=== PATIENT | female | born 1980 | race Caucasian/White ===

== ENCOUNTER 2016-12-12 15:13 | Emergency (ER) | payer MEDICAID ==
[2016-12-12 15:41] VITALS: BP 118/88
[2016-12-12] MEDS ORDERED: Acetaminophen/HYDROcodone 325-5 MG Tab PO ONE (16:08)
--- NOTE | 2016-12-12 16:12 | CR ---
Right foot: 4 views of the right foot were obtained. Comparison: No previous foot study. Joint spaces are preserved. Plantar spur is noted. No acute fracture or other bony abnormality is seen. Impression: 1. Plantar spur. 2. No acute abnormality is identified on right foot exam. Diagnostic code #2
--- NOTE | 2016-12-12 16:19 | EDM.PDOC ---
ED HPI GENERAL MEDICAL PROBLEM - General Chief Complaint: Lower Extremity Injury/Pain Stated Complaint: RT FOOT INJURY Time Seen by Provider: 12/12/16 16:00 Source of Information: Reports: Patient History Limitations: Reports: No Limitations - History of Present Illness INITIAL COMMENTS - FREE TEXT/NARRATIVE: 28-year-old female presents for evaluation treatment of injury to the right foot. Patient reports injury occurred last night. She reports she dropped a cinder block on her dorsal right foot. Estimates the cinder block to weight between 15-20 pounds. She states she has been unable to bear weight on the foot since the incident. Reports bruising to the right dorsal toe. Denies any numbness or tingling. She states that she has chronic numbness and tingling in the left leg from back problems. She is not able to bear weight on her left leg. She normally uses a cane or walker. She has been using a wheelchair to get around since the injury. Location: Reports: Lower Extremity, Right Right Feet Pain Score (Numeric/FACES): 8 - Related Data Allergies Allergy/AdvReac Type Severity Reaction Status Date / Time No Known Allergies Allergy Verified 12/12/16 15:20 Home Meds: Home Meds Topiramate [Topamax] 25 mg PO BEDTIME 12/06/15 [History] Lubiprostone [Amitiza] 24 mcg PO BID 03/28/16 [History] Omeprazole Magnesium [Prilosec Otc] 20 mg PO DAILY 03/28/16 [History] busPIRone [Buspar] 15 mg PO TID 03/28/16 [History] hydrOXYzine HCl [Atarax] 75 mg PO BEDTIME 03/28/16 [History] Acetaminophen/HYDROcodone [[place] 325-5 MG] 1 tab PO Q6H PRN #12 tablet 12/12/16 [Rx] Metaxalone 800 mg PO TID 12/12/16 [History] Vortioxetine Hydrobromide [Trintellix] 10 mg PO DAILY 12/12/16 [History] Past Medical History - Past Health History Medical/Surgical History: Denies Medical/Surgical History Cardiovascular History: Reports: Other (See Below) Other Cardiovascular History: palpitations Gastrointestinal History: Reports: GERD Genitourinary History: Reports: Renal Calculus Other OB/BYN History: tubal Musculoskeletal History: Reports: Back Pain, Chronic Other Musculoskeletal History: muscle spasms Neurological History: Reports: Headaches, Chronic, Other (See Below) Other Neuro History: fibromyalgia Psychiatric History: Reports: Anxiety, Depression Endocrine/Metabolic History: Reports: Obesity/BMI 30+ Oncologic (Cancer) History: Reports: None - Past Surgical History GI Surgical History: Reports: Cholecystectomy Female Surgical History: Reports: Tubal Ligation Social & Family History - Tobacco Use Smoking Status *Q: Current Every Day Smoker Years of Tobacco use: 25 Packs/Tins Daily: 0.3 Second Hand Smoke Exposure: Yes - Alcohol Use Days Per Week of Alcohol Use: 0 (rarely) Number of Drinks Per Day: 0 Total Drinks Per Week: 0 - Recreational Drug Use Recreational Drug Use: No Drug Use in Last 12 Months: No Recreational Drug Type: Reports: Marijuana/Hashish Recreational Drug Use Frequency: Not Used In Over 6 Months Review of Systems - Review of Systems Review Of Systems: See Below Musculoskeletal: Reports: Foot Pain (right) Skin: Reports: Bruising (right foot dorsal 3rd toe). Denies: Wound Neurological: Reports: Difficulty Walking. Denies: Numbness, Tingling ED EXAM, GENERAL - Physical Exam Exam: See Below Exam Limited By: No Limitations General Appearance: Alert, WD/WN, Mild Distress (tearful), Obese Respiratory/Chest: No Respiratory Distress Cardiovascular: Normal Peripheral Pulses, Regular Rate, Rhythm Peripheral Pulses: 2+: Posterior Tibial (L), Posterior Tibial (R), Dorsalis Pedis (L), Dorsalis Pedis (R) Extremities: Normal Capillary Refill, Limited Range of Motion (unwilling to move toes due to apin), Other (tenderness to palpation of the right dorsal metatarsals; minimal swelling to the right foot). No: Increased Warmth Neurological: Alert, Oriented, Normal Cognition Psychiatric: Tearful Skin Exam: Warm, Dry, Ecchymosis (approximately 1.5 x 1 cm ecchymosis to the right dorsal 3rd toe). No: Increased Warmth Course - Vital Signs Last Recorded V/S: Last Vital Signs Temp 36.7 C 12/12/16 15:17 Pulse 84 12/12/16 15:17 Resp 16 12/12/16 15:17 BP 118/88 12/12/16 15:17 Pulse Ox 100 12/12/16 15:17 - Orders/Labs/Meds Meds: Medications Discontinued Medications Generic Name Dose Route Start Last Admin Trade Name Nikita PRN Reason Stop Dose Admin Hydrocodone Bitart/Acetaminophen 1 tab 12/12/16 16:08 12/12/16 16:30 [place] 325-5 Mg PO 12/12/16 16:09 1 tab ONETIME ONE Administration - Radiology Interpretation Free Text/Narrative:: xray of the right foot impression per dr. Damico: 1. plantar spur. 2. No acute abnormality is identified on right foot exam. - Re-Assessments/Exams Free Text/Narrative Re-Assessment/Exam: 12/12/16 17:31 I reviewed the radiology read with the patient. She has a wheelchair at home she can use if needed. No fractures. I offered her a CT if she is concerned about a break that may not have shown up on xray. She declines a CT at this time. She will treat conservatively and follow up with PCP if not better. Rx given for pain medication. Discharge instructions as documented. Departure - Departure Time of Disposition: 17:35 Disposition: Home, Self-Care 01 Condition: Fair Clinical Impression: Traumatic ecchymosis of right foot - Discharge Information Prescriptions: Acetaminophen/HYDROcodone [[place] 325-5 MG] 1 tab PO Q6H PRN #12 tablet PRN Reason: Pain Referrals: PCP,None [Primary Care Provider] - Forms: ED Department Discharge Additional Instructions: you were given medication in the ER that can affect your ability to drive and operate machinery. No driving or operating machinery within 12 hours of taking prescription narcotic pain medication. OTC ibuprofen as needed for pain. [place] 1-2 tabs PO every 4-6 hours prn severe pain. Do not drive or operate machinery within 12 hours of taking norco. [place] can be habit forming, I recommend you take as few of these as needed to control your pain. Ice the foot. Elevate the foot. Recommend being off the foot for the next 3 days. Expect your symptoms to last 1 week. The first 3 days will be the worst. If your symptoms persist beyond one week follow-up with your primary care provider. Please return to the ER if your symptoms change or worsen.
== END 2016-12-12 17:44 | disposition home or self-care (01) ==
LOC: JD.ED 15:13
DX: S90.31XA Contusion of right foot, initial encounter (principal); K21.9 Gastro-esophageal reflux disease without esophagitis; F41.9 Anxiety disorder, unspecified; F32.9 Major depressive disorder, single episode, unspecified; F17.210 Nicotine dependence, cigarettes, uncomplicated; E66.9 Obesity, unspecified; Z68.37 Body mass index [BMI] 37.0-37.9, adult; Z90.49 Acquired absence of other specified parts of digestive tract; Z98.51 Tubal ligation status; Z79.899 Other long term (current) drug therapy; W20.8XXA Other cause of strike by thrown, projected or falling object, initial encounter
CPT/HCPCS: 73630; 99284; A9270; 99283

== ENCOUNTER 2017-03-16 14:30 | Emergency (ER) | payer MEDICAID ==
[2017-03-16 14:50] VITALS: BP 131/94
--- NOTE | 2017-03-16 15:16 | EDM.PDOC ---
ED HPI GENERAL MEDICAL PROBLEM - General Chief Complaint: Back Pain or Injury Stated Complaint: BACK PAIN,LEFT ARM AND LEG NUMB Time Seen by Provider: 03/16/17 14:54 Source of Information: Reports: Patient, Old Records, Provider (contacted patient's PCP) History Limitations: Reports: No Limitations - History of Present Illness INITIAL COMMENTS - FREE TEXT/NARRATIVE: 36-year-old female presents for evaluation and treatment of injuries sustained after fall. Patient reports fall occurred around 1300 this afternoon as she was helping her paint. She states that she backed up and did not see a tree stump. She states that she fell backwards landing onto her butt. She then fell back onto her upper back due to the pain. She denies any head trauma. Reports numbness to the left leg and states she is now developing numbness and tingling into the left arm. She denies any loss of consciousness initially but states that she has a history of fibromyalgia and sometimes loses consciousness when she is in severe pain. Reports on the way over to the ER she did lose consciousness for maybe a few seconds. No nausea or vomiting. No saddle anesthesia. No urinary or stool incontinence. Pain to the low back extending superiorly into her upper back and neck. Reports numbness to the left leg and left arm. Of note nursing staff appreciated t hat she was able to get out her truck and into a wheelchair without problem. She was able to remove her pants without problem and uses her left leg appropriately for each of these. Location: Reports: Neck, Back Neck Pain Score (Numeric/FACES): 10 Back Pain Score (Numeric/FACES): 10 - Related Data Allergies Allergy/AdvReac Type Severity Reaction Status Date / Time ketorolac [From Toradol] AdvReac Anxiety Verified 03/16/17 14:54 tramadol AdvReac Anxiety Verified 03/16/17 14:54 Home Meds: Home Meds Topiramate [Topamax] 25 mg PO BEDTIME 12/06/15 [History] Lubiprostone [Amitiza] 24 mcg PO BID 03/28/16 [History] Omeprazole Magnesium [Prilosec Otc] 20 mg PO DAILY 03/28/16 [History] busPIRone [Buspar] 15 mg PO TID 03/28/16 [History] hydrOXYzine HCl [Atarax] 75 mg PO BEDTIME 03/28/16 [History] Metaxalone 800 mg PO TID 12/12/16 [History] Vortioxetine Hydrobromide [Trintellix] 10 mg PO DAILY 12/12/16 [History] Past Medical History - Past Health History Medical/Surgical History: Denies Medical/Surgical History Cardiovascular History: Reports: Other (See Below) Other Cardiovascular History: palpitations Gastrointestinal History: Reports: GERD Genitourinary History: Reports: Renal Calculus Other OB/BYN History: tubal Musculoskeletal History: Reports: Back Pain, Chronic, Fibromyalgia Other Musculoskeletal History: muscle spasms Neurological History: Reports: Headaches, Chronic Other Neuro History: fibromyalgia Psychiatric History: Reports: Anxiety, Depression Endocrine/Metabolic History: Reports: Obesity/BMI 30+ Oncologic (Cancer) History: Reports: None - Past Surgical History GI Surgical History: Reports: Cholecystectomy Female Surgical History: Reports: Tubal Ligation Neurological Surgical History: Reports: Lumbar Spine Social & Family History - Tobacco Use Smoking Status *Q: Current Every Day Smoker Years of Tobacco use: 25 Packs/Tins Daily: 0.5 Second Hand Smoke Exposure: Yes - Caffeine Use Caffeine Use: Reports: Coffee, Energy Drinks - Alcohol Use Days Per Week of Alcohol Use: 0 (rarely) Number of Drinks Per Day: 0 Total Drinks Per Week: 0 - Recreational Drug Use Recreational Drug Use: No Drug Use in Last 12 Months: No Recreational Drug Type: Reports: Marijuana/Hashish Recreational Drug Use Frequency: Not Used In Over 6 Months ED ROS GENERAL - Review of Systems Review Of Systems: See Below GI/Abdominal: Denies: Stool Incontinence : Denies: Incontinence Musculoskeletal: Reports: Neck Pain, Arm Pain, Back Pain Skin: Denies: Bruising, Wound Neurological: Reports: Numbness, Syncope, Tingling, Other (no saddle anesthesia) ED EXAM,LOWER BACK PAIN/INJURY - Physical Exam Exam: See Below Exam Limited By: No Limitations General Appearance: Alert, WD/WN, Mild Distress Eye Exam: Bilateral Eye: Normal Inspection, PERRL Ears: Normal External Exam Nose: Normal Inspection Throat/Mouth: Normal Inspection, Normal Voice, No Airway Compromise Head: Atraumatic, Normocephalic Neck: Normal Inspection, Supple, Tender Midline (reports severe pain with light palpation to the cervical spine), Other (c-collar applied by nursing staff due to her severe pain). No: Tender Lateral Respiratory/Chest: No Respiratory Distress, Lungs Clear, Normal Breath Sounds Cardiovascular: Normal Peripheral Pulses (2+ doraslis pedis and posterior tibialis pulses bilterally), Regular Rate, Rhythm, No Murmur Back Exam: Normal Inspection, Vertebral Tenderness (reports severe pain to the entire spine) Extremities: Normal Inspection Neurological: Alert, Normal Mood/Affect, Normal Dorsiflexion, Normal Plantar Flexion Psychiatric: Normal Affect, Normal Mood Skin Exam: Warm, Dry, Normal Color Course - Vital Signs Last Recorded V/S: Last Vital Signs Temp 36.9 C 03/16/17 14:47 Pulse 75 03/16/17 14:47 Resp 16 03/16/17 14:47 BP 131/94 H 03/16/17 14:47 Pulse Ox 95 03/16/17 14:47 - Orders/Labs/Meds Orders: Active Orders 24 hr Category Date Time Status Cervical Spine wo Cont [CT] Stat Exams 03/16/17 15:10 Ordered Lumbar Spine wo Cont [CT] Stat Exams 03/16/17 15:10 Ordered Thoracic Spine wo Cont [CT] Stat Exams 03/16/17 15:10 Ordered Meds: Medications Discontinued Medications Generic Name Dose Route Start Last Admin Trade Name Freq PRN Reason Stop Dose Admin Ibuprofen 800 mg 03/16/17 15:54 03/16/17 16:02 Motrin PO 03/16/17 15:55 800 mg ONETIME ONE Administration Ondansetron HCl 4 mg 03/16/17 15:54 03/16/17 16:01 Zofran Odt PO 03/16/17 15:55 4 mg ONETIME ONE Administration - Radiology Interpretation Free Text/Narrative:: CT of the cervical spine without contrast impression per [facility]: normal cervical spine CT CT of the thoracic spine without contrast impression per [facility]: No acute findings. No fracture CT of the lumbar spine without contrast impression per [facility]: no acute findings. Discogenic degenerative changes at L5-S1 CT Results Date: 03/16/17 - Re-Assessments/Exams Free Text/Narrative Re-Assessment/Exam: 03/16/17 15:20 The patient's physical exam is inconsistent with her injuries. She is reporting severe pain to light palpation along her entire spine. She seems to exaggerate her symptoms. I did not find any bruising or any wounds on her. Patient searched on the [employer] drug registry 31 prescriptions from 3 prescribers within the last year. Most recently hydrocodone-acetaminophen 10-325 #90 filled on 03-02-17. I contacted the patient's primary care provider, Sabine Elvis, due to concerns over her exam and her history. Her primary care provider does report that she had a bad back surgery that caused decreased strength to the left leg. She reports that she falls frequently from this. States that she does have some drug-seeking tendencies. She was discharged from the pain clinic after it was found that she had marijuana in her urine. Sabine states that she then took over managing her pain. Family reports that she has had her see Dr. De La O for this. Sabine reports that she recently took her off her narcotic pain medication when her urine repeatedly returned negative for any narcotics. Sabine reiterates that she does have a bad back and does have pathology from her back, however, she has caused problems for herself and her pain management by getting discharged from the pain clinic and now from herself. 03/16/17 16:11 I asked her about the 90 norco. Reports she is no longer taking pain medication. I informed her I cannot fill her norco given she was given 90 non . She does not deny getting this prescription. I reviewed the CT results with the patient. I informed her that given that she is just received 90 [place] on the fourth. I'm unable to prescribe her any more narcotic pain medication. I recommended Tylenol, Motrin, heat and follow-up with orthopedics as planned. Departure - Departure Time of Disposition: 16:15 Disposition: Home, Self-Care 01 Condition: Fair Clinical Impression: Drug-seeking behavior Chronic back pain Qualifiers: Back pain location: low back pain Back pain laterality: midline Sciatica presence: with sciatica presence unspecified Qualified Code(s): M54.5 - Low back pain - Discharge Information Referrals: PCP,None [Primary Care Provider] - Fina Leal NP [Ordering Only Provider] - Leroy De La O DO [Physician] - Forms: ED Department Discharge Additional Instructions: Recommend [id number] Tylenol or Motrin as needed for pain relief. you may take the [place] that you have at home as needed for additional pain relief. Recommend using ice or moist heat to the back. may also try an [id number] topical products such as 4% lidocaine patches. Follow up with either your primary care provider Dr. De La O within a week for recheck of your symptoms. Please return to the ER if your symptoms change or worsen. - My Orders Last 24 Hours: My Active Orders 03/16/17 15:10 Cervical Spine wo Cont [CT] Stat Lumbar Spine wo Cont [CT] Stat Thoracic Spine wo Cont [CT] Stat - Assessment/Plan Last 24 Hours: My Active Orders 03/16/17 15:10 Cervical Spine wo Cont [CT] Stat Lumbar Spine wo Cont [CT] Stat Thoracic Spine wo Cont [CT] Stat
[2017-03-16] MEDS ORDERED: Ibuprofen 800 MG Tab PO ONE (15:54)
[2017-03-16] MEDS ORDERED: Ondansetron 4 MG Tab.DIS PO ONE (15:54)
--- NOTE | 2017-03-17 07:37 | CT ---
CT thoracic spine Technique: Multiple axial sections through the thoracic spine were obtained. Reconstructed sagittal and coronal images were reviewed. Comparison: No previous thoracic spine study. Findings: Vertebral body heights and disc spaces are preserved. No bony central or bony neural foraminal stenosis is seen. No discrete disc herniation is identified. Small nonobstructing calculi are noted within both kidneys. No fracture or other bony abnormality is seen. No abnormal subluxation is seen. No paravertebral soft tissue swelling is identified. Impression: 1. Small nonobstructing calculi within both kidneys. 2. Nothing acute is seen on CT study of the thoracic spine. Diagnostic code #2 I agree with preliminary report issued by [facility] ([facility] preliminary report dictated on 03/16/17, 5:01 PM Central Time)
--- NOTE | 2017-03-17 07:38 | CT ---
CT cervical spine Technique: Multiple axial sections through the cervical spine were obtained. Study was obtained from above C1 inferiorly to the bottom of T2. Reconstructed sagittal and coronal images were obtained. Findings: Mastoid sinuses and middle ear cavities are clear. Posterior skull base appears intact. Vertebral body heights and disc spaces are maintained. No bony central or lower bony neural foraminal stenosis is seen. No abnormal subluxation is seen on the reconstructed sagittal images. No fracture is identified. Impression: 1. No abnormality is identified on CT study of the cervical spine. Diagnostic code #1 Agree with preliminary report issued by [facility] ([facility] preliminary report dictated on 03/16/17, 5:03 PM Central Time)
--- NOTE | 2017-03-17 07:38 | CT ---
CT lumbar spine Technique: Multiple axial sections were obtained through the lumbar spine. Reconstructed sagittal and coronal images were reviewed. Comparison: Previous lumbar spine plain film study of 11/29/13 is available. Findings: Vertebral bodies and posterior arches are intact. No fracture is seen. Minimal circumferential disc bulge is seen at L4-L5 with posterior disc having a planar margin. Severe disc space narrowing at L5-S1 with vacuum phenomena. Slight posterior spurring as well as mild degenerative apophyseal change is seen. Findings cause moderate amount of left-sided neural foraminal stenosis. Right neural foramen is patent at the L5-S1 level. Other neural foramina are patent. No bony central canal stenosis is seen. No fracture is identified. Minimal degenerative sclerosis and vacuum phenomena is seen within the sacroiliac joints compatible with slight degenerative change. Impression: 1. Degenerative change at L5-S1 which is an interval change from prior plain film study. Minimal degenerative change within the sacroiliac joints. 2. Minimal circumferential disc bulge at L4-L5. 3. CT study of the lumbar spine is otherwise unremarkable. Nothing acute is appreciated. Diagnostic code #2 I agree with preliminary report issued by [facility] ([facility] preliminary report dictated on 03/16/17, 5:04 PM Central Time)
== END 2017-03-16 16:30 | disposition home or self-care (01) ==
LOC: JD.ED 14:30
DX: M54.5 Low back pain (principal); G89.29 Other chronic pain; M54.2 Cervicalgia; Z76.5 Malingerer [conscious simulation]; K21.9 Gastro-esophageal reflux disease without esophagitis; F32.9 Major depressive disorder, single episode, unspecified; E66.9 Obesity, unspecified; F17.210 Nicotine dependence, cigarettes, uncomplicated; Z79.899 Other long term (current) drug therapy; Z88.5 Allergy status to narcotic agent; Z88.6 Allergy status to analgesic agent
CPT/HCPCS: 72125; 72128; 72131; 99284; A9270